=== PATIENT | male | born 1990 | race Caucasian/White ===

== ENCOUNTER 2017-05-26 19:23 | Emergency (ER) | payer BC ==
[2017-05-26] MEDS ORDERED: NS 1,000 ML IV ONE (19:37)
[2017-05-26 20:32] LABS: PLATELET COUNT 227 10^3/uL (150-400)
[2017-05-26] MEDS ORDERED: IOPAMIDOL (ISOVUE-300) 100 ML BTL ONE (20:58)
[2017-05-26 21:44] VITALS: RESP 18
--- NOTE | 2017-05-26 22:09 | EDPHY ---
H & P Stated Complaint: RLQ abd pain that started yesterday Time Seen by Provider: 05/26/17 19:34 HPI/ROS: Chief complaint: Abdominal pain History of present illness: This is a 27-year-old male who presents to the emergency department for evaluation of abdominal pain. She reports a soreness in the right, lower aspect of his abdomen. Symptoms began yesterday. They have been persistent. He does state over the last month he has had intermittent soreness in this region but never persistent. He denies precipitating factors. He denies alleviating factors. He denies other associated signs or symptoms including no fevers, no nausea or vomiting, no diarrhea or constipation, no urinary symptoms. He went to urgent care earlier today who requested he come to the emergency room to rule out appendicitis. Review of systems: A 10 point review of systems was obtained and other than described above was negative - Personal History Current Tetanus/Diphtheria Vaccine: Unsure Current Tetanus Diphtheria and Acellular Pertussis (TDAP): Unsure - Medical/Surgical History Hx Asthma: No Hx Chronic Respiratory Disease: No Hx Diabetes: No Hx Cardiac Disease: No Hx Renal Disease: No Hx Cirrhosis: No Hx Alcoholism: No Hx HIV/AIDS: No Hx Splenectomy or Spleen Trauma: No Other PMH: denies - Social History Smoking Status: Never smoked - Physical Exam Exam: General Appearance: Alert, nontoxic. Eyes: Pupils equal and round no pallor or injection. ENT, Mouth: Mucous membranes moist. Respiratory: There are no retractions, lungs are clear to auscultation. Cardiovascular: Regular rate and rhythm. Gastrointestinal: Bowel sounds are normal. Abdomen is soft. There is no distension. He reports soreness in the right lower quadrant diffusely. However there are no peritoneal signs. Neurological: Alert and oriented x4. Strength and sensation intact and symmetrical. Skin: Warm and dry, no rashes. Musculoskeletal: Neck is supple non tender. Extremities are symmetrical, full range of motion. Psychiatric: Patient is oriented X 3, there is no agitation. Constitutional: Initial Vital Signs Temperature (C) 37.1 C 05/26/17 19:24 Heart Rate 67 05/26/17 19:24 Respiratory Rate 16 05/26/17 19:24 Blood Pressure 155/101 H 05/26/17 19:24 O2 Sat (%) 96 05/26/17 19:24 O2 Delivery Mode Room Air Allergies/Adverse Reactions: No Known Allergies Allergy (Unverified 05/26/17 19:26) Home Medications: Medication Instructions Recorded NK [No Known Home Meds] 05/26/17 Medical Decision Making - Diagnostics Imaging: Discussed imaging studies w/ product lead Radiologist ED Course/Re-evaluation: Patient is seen under the supervision of my secondary supervising physician Dr. Moises Thorne. Patient presents to the emergency department for right lower quadrant abdominal pain. He is nontoxic. Vital signs are stable. He had a benign abdominal exam on presentation. Repeat abdominal exam prior to discharge remained benign. Lab studies, urine and CT scan unremarkable. I believe he is appropriate for outpatient management. He is asked to follow up with a primary care doctor for continued evaluation and care. Home care is discussed. Strict return precautions were given. Patient voiced understanding and agreement with plan. Differential Diagnosis: Included but not limited to appendicitis, colitis, diverticulitis, biliary tract disease, pancreatitis, musculoskeletal pain, urinary tract disease - Data Points Laboratory Results: Laboratory Results 05/26/17 20:24 05/26/17 20:24 05/26/17 05/26/17 05/26/17 20:30 20:24 20:24 WBC 5.87 10^3/uL 10^3/uL (3.80-9.50) RBC 5.13 10^6/uL 10^6/uL (4.40-6.38) Hgb 15.7 g/dL g/dL (13.7-17.5) Hct 44.4 % % (40.0-51.0) MCV 86.5 fL fL (81.5-99.8) MCH 30.6 pg pg (27.9-34.1) MCHC 35.4 g/dL g/dL (32.4-36.7) RDW 11.9 % % (11.5-15.2) Plt Count 227 10^3/uL 10^3/uL (150-400) MPV 10.8 fL fL (8.7-11.7) Neut % (Auto) 58.7 % % (39.3-74.2) Lymph % (Auto) 27.6 % % (15.0-45.0) [place] % (Auto) 12.1 % % (4.5-13.0) Eos % (Auto) 0.9 % % (0.6-7.6) Baso % (Auto) 0.5 % % (0.3-1.7) Nucleat RBC Rel Count 0.0 % % (0.0-0.2) Absolute Neuts (auto) 3.45 10^3/uL 10^3/uL (1.70-6.50) Absolute Lymphs (auto) 1.62 10^3/uL 10^3/uL (1.00-3.00) Absolute Monos (auto) 0.71 10^3/uL 10^3/uL (0.30-0.80) Absolute Eos (auto) 0.05 10^3/uL 10^3/uL (0.03-0.40) Absolute Basos (auto) 0.03 10^3/uL 10^3/uL (0.02-0.10) Absolute Nucleated RBC 0.00 10^3/uL 10^3/uL (0-0.01) Immature Gran % 0.2 % % (0.0-1.1) Immature Gran # 0.01 10^3/uL 10^3/uL (0.00-0.10) Sodium 143 mEq/L mEq/L (135-145) Potassium 4.0 mEq/L mEq/L (3.5-5.2) Chloride 104 mEq/L mEq/L (97-110) Carbon Dioxide 22 mEq/l mEq/l (22-31) Anion Gap 17 mEq/L H mEq/L (8-16) BUN 12 mg/dL mg/dL (7-23) Creatinine 0.9 mg/dL mg/dL (0.7-1.3) Estimated GFR > 60 Glucose 101 mg/dL H mg/dL (70-100) Calcium 10.2 mg/dL mg/dL (8.5-10.4) Total Bilirubin 0.5 mg/dL mg/dL (0.1-1.4) Conjugated Bilirubin 0.3 mg/dL mg/dL (0.0-0.5) Unconjugated Bilirubin 0.2 mg/dL mg/dL (0.0-1.1) AST 22 IU/L IU/L (17-59) ALT 38 IU/L IU/L (21-72) Alkaline Phosphatase 77 IU/L IU/L (38-126) Total Protein 7.9 g/dL g/dL (6.3-8.2) Albumin 4.9 g/dL g/dL (3.5-5.0) Lipase 106 IU/L IU/L (23-300) Urine Color PALE YELLOW Urine Appearance CLEAR Urine pH 7.0 (5.0-7.5) Ur Specific [place] 1.008 (1.002-1.030) Urine Protein NEGATIVE (NEGATIVE) Urine Ketones NEGATIVE (NEGATIVE) Urine Blood NEGATIVE (NEGATIVE) Urine Nitrate NEGATIVE (NEGATIVE) Urine Bilirubin NEGATIVE (NEGATIVE) Urine Urobilinogen NEGATIVE EU EU (0.2-1.0) Ur Leukocyte Esterase NEGATIVE (NEGATIVE) Urine Glucose NEGATIVE (NEGATIVE) Medications Given: Discontinued Medications Sodium Chloride (Ns) 1,000 mls @ 0 mls/hr IV EDNOW ONE; Wide Open PRN Reason: Protocol Stop: 05/26/17 19:38 Last Admin: 05/26/17 20:20 Dose: 1,000 mls Departure - Departure Disposition: Home, Routine, Self-Care Clinical Impression: Abdominal pain Qualifiers: Abdominal location: right lower quadrant Qualified Code(s): R10.31 - Right lower quadrant pain Condition: Good Instructions: Acute Abdominal Pain (ED) Additional Instructions: Follow-up with a primary care doctor this week for recheck If symptoms worsen or new symptoms develop return to the emergency room for recheck Referrals: NONE *PRIMARY CARE P,. [Primary Care Provider] - As per Instructions [facility],. [Clinic] - As per Instructions
[2017-05-26 22:33] VITALS: BP 118/67; PULSE 59; TEMP 98.2; O2SAT 98
== END 2017-05-26 22:31 | disposition home or self-care (01) ==
DX: R10.31 Right lower quadrant pain (principal); E86.9 Volume depletion, unspecified
CPT/HCPCS: Q9967